=== PATIENT | female | born 1985 | race Caucasian/White ===

== ENCOUNTER 2019-10-12 20:19 | Emergency (ER) | payer OTHER ==
[~2019-10-12] VITALS: Ht 165.1 cm; Wt 77.0 kg
[~2019-10-12 20:19] MED LIST: EFFE75CA75 OR; No Historical Meds; TRAZ150T OR
[2019-10-12] MEDS ORDERED: IBUPROFEN 600 MG TAB PO ONE (22:15)
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
[2019-10-12 23:37] VITALS: BP 126/80
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
== END 2019-10-12 23:41 | disposition home or self-care (01) ==
LOC: M ED 20:19
DX: S06.0X0A Concussion without loss of consciousness, initial encounter (principal); S40.011A Contusion of right shoulder, initial encounter; S60.222A Contusion of left hand, initial encounter; T74.11XA Adult physical abuse, confirmed, initial encounter; Y07.499 Other family member, perpetrator of maltreatment and neglect; Y92.098 Other place in other non-institutional residence as the place of occurrence of the external cause; Z88.7 Allergy status to serum and vaccine; Z91.012 Allergy to eggs; Z91.013 Allergy to seafood; Z91.040 Latex allergy status; Z88.8 Allergy status to other drugs, medicaments and biological substances